=== PATIENT | female | born 1945 | race Caucasian/White ===

== ENCOUNTER 2018-09-06 12:08 | Emergency (ER) | payer MEDICARE, BC ==
[~2018-09-06] VITALS: Ht 165.1 cm; Wt 56.2 kg
[2018-09-06] MEDS ORDERED: ATORVASTATIN CA10 MG ORAL (12:18)
--- NOTE | 2018-09-06 12:25 | NUR ---
ED Nurse Note: Pt came in from home due to " being hit by a cabinet on forehead" this morning around 1045. Redness and swelling noted on medial forehead. No bleeding. AOx4, no KO, no n/v after the incident. No complaint of pain at this time. BP 169/61 upon arrival. Will cont to monitor.
[2018-09-06 12:30] VITALS: BP 169/61
--- NOTE | 2018-09-06 12:33 | NUR ---
ED Nurse Note: Pt down to CT for imaging.
--- NOTE | 2018-09-06 12:50 | Emergency Room Report ---
History of Present Illness General Chief Complaint: Head Injury Source: Patient Present Illness HPI Patient present with complaints of trauma to the mid forehead Reports that approximately 10:00 this morning a cabinet fell striking her in the mid forehead Denies any lapse of consciousness Patient reports she takes medications for her cholesterol otherwise denies any aspirin or any other blood thinning medication Denies any neck pain or photophobia Denies any visual changes She had noticed some swelling And her primary physician requested her to present to the emergency room Allergies: Coded Allergies: No Known Allergies (Verified Allergy, Unknown, 09/04/10) Patient History Past Medical History: see triage record Pertinent Family History: none Last Menstrual Period: na Reviewed Nursing Documentation: PMH: Agreed; PSxH: Agreed Nursing Documentation-PMH Past Medical History: No History, Except For Review of Systems All Other Systems: negative except mentioned in HPI Physical Exam Vital Signs Date Time Temp Pulse Resp B/P (MAP) Pulse Ox O2 Delivery O2 Flow Rate FiO2 09/06/18 12:11 97.9 65 20 186/85 98 09/06/18 12:30 Room Air Sp02 EP Interpretation: reviewed, normal General Appearance: well appearing, no apparent distress Head: normocephalic, other - One by one centimeter hematoma mid upper forehead Eyes: bilateral eye PERRL, bilateral eye EOMI ENT: hearing grossly normal, normal pharynx, TMs + canals normal, uvula midline Neck: full range of motion, supple, no meningismus, no bony tend Respiratory: lungs clear, normal breath sounds, no rhonchi, no respiratory distress, no retraction, no accessory muscle use Cardiovascular #1: normal peripheral pulses, regular rate, rhythm, no edema, no gallop, no JVD, no murmur Gastrointestinal: normal bowel sounds, non tender, soft, no mass, no organomegaly, non-distended, no guarding, no hernia, no pulsatile mass, no rebound Genitourinary: no CVA tenderness Musculoskeletal: normal inspection Neurologic: oriented x3, responsive, press loader III-XII nml as tested, motor strength/ tone normal, sensory intact Psychiatric: mood/affect normal Skin: other - As above with mild abrasion at the point Lymphatic: normal inspection, no adenopathy Medical Decision Making Diagnostic Impression: Primary Impression: Acute head injury Additional Impression: Hematoma ER Course Given the patient's history age and presentation given the risk factors and the acute trauma CT imaging was warranted No obvious acute pathology is seen patient remains neurologically intact and disposition for close outpatient follow-up CT/MRI/US Diagnostic Results CT/MRI/US Diagnostic Results : Impression CT head:t no acute disease Last Vital Signs Date Time Temp Pulse Resp B/P (MAP) Pulse Ox O2 Delivery O2 Flow Rate FiO2 09/06/18 12:30 70 20 169/61 98 Room Air 09/06/18 12:11 97.9 Status: improved Disposition: HOME, SELF-CARE Condition: Improved Referrals: AYNANA PATINO (PCP) Additional Instructions: Patient is provided with the discharge instructions notified to follow up with primary doctor in the next 2-3 days otherwise return to the er with any worsening symptoms. Please note that this report is being documented using [employer] technology. This can lead to erroneous entry secondary to incorrect interpretation by the dictating instrument. Mono Nicholas DO Sep 06, 2018 12:50
[2018-09-06 13:11] VITALS: BP 169/61
--- NOTE | 2018-09-06 13:11 | NUR ---
ER DISCHARGE NOTE: Patient is cleared to be discharged per ERMD, pt is aox4, on room air, with stable vital signs. pt was given dc and prescription instructions, pt was able to verbalize understanding, pt id band removed. pt is able to ambulate with steady gait. pt took all belongings.
--- NOTE | 2018-09-07 08:19 | Diagnostic Imaging Report ---
Indication: Head trauma Technique: Continuous helical CT scanning of the head was performed without intravenous contrast material. Axial and coronal 5 mm sections were generated. Radiation dose was minimized using automated exposure control Dose: Total Dose Length Product - DLP 1273.[address] Dose Index - CTDIvol(s) 70.38 mGy. Comparison: Findings: The ventricular system is normal in size and configuration. There is no shift of midline structures. No abnormal extra-axial fluid collections are noted. There is no evidence of intracerebral bleeding. No other abnormal high or low density areas are noted within the brain. Intact calvarium. Visualized orbits and sinuses are unremarkable. Impression: Normal CT scan of the head without contrast material. This agrees with the preliminary interpretation provided overnight by [facility]. The CT scanner at [facility] is accredited by the [employer] and the scans are performed using protocols designed to limit radiation exposure to as low as reasonably achievable to attain images of sufficient resolution adequate for diagnostic evaluation.
== END 2018-09-06 13:11 | disposition home or self-care (01) ==
LOC: EMR 12:26
DX: S00.83XA Contusion of other part of head, initial encounter (principal); W22.03XA Walked into furniture, initial encounter; Y92.89 Other specified places as the place of occurrence of the external cause
CPT/HCPCS: 70450; 99284